=== PATIENT | female | born 1995 | race African-American/Black ===

== ENCOUNTER 2017-09-05 07:23 | Emergency (ER) | payer OTHER ==
[~2017-09-05] VITALS: Ht 175.3 cm; Wt 90.7 kg
[~2017-09-05 07:23] MED LIST: MACROBID 100 M100 M1 PO; TRINATE TABLET1 TAB PO
[2017-09-05 07:40] VITALS: BP 147/88
== END 2017-09-05 08:38 | disposition home or self-care (01) ==
LOC: ER 07:23
DX: R21 Rash and other nonspecific skin eruption (principal)

== ENCOUNTER 2018-05-13 20:10 | Emergency (ER) | payer OTHER ==
[~2018-05-13] VITALS: Ht 175.3 cm; Wt 77.1 kg
[2018-05-13 20:27] LABS: URINE BILIRUBIN NEGATIVE (Negative); URINE BLOOD 1+ (Negative); URINE CLARITY CLEAR; URINE COLOR YELLOW; URINE GLUCOSE-RANDOM* NEGATIVE (Negative); URINE KETONES NEGATIVE (Negative); URINE LEUKOCYTES-REFLEX NEGATIVE (Negative); URINE NITRITE-REFLEX NEGATIVE (Negative); URINE PROTEIN (DIPSTICK) NEGATIVE (Negative)
[2018-05-13 20:35] LABS: AMORPHOUS PHOSPHATES Few /LPF (None Seen); BACTERIA-REFLEX None Seen /HPF (None Seen); CASTS None Seen /LPF (None Seen); SQUAMOUS 0-3 Few /LPF (0-3); URINE RBC 3-10 Few /HPF (0-2); URINE WBC-REFLEX 0-5 Rare /HPF (0-5)
[2018-05-13] MEDS ORDERED: FLAGYL500 M1 PO (22:04)
[2018-05-13 22:50] VITALS: BP 136/82
== END 2018-05-13 22:51 | disposition home or self-care (01) ==
LOC: ER 20:10
PROVIDERS: Physician Assistant
DX: O20.0 Threatened abortion (principal); Z3A.01 Less than 8 weeks gestation of pregnancy

== ENCOUNTER 2018-08-06 19:39 | Emergency (ER) | payer OTHER ==
[~2018-08-06] VITALS: Ht 170.2 cm; Wt 85.3 kg
[~2018-08-06 19:39] MED LIST changes: +FLAGYL500 M1 PO
[2018-08-06] MEDS ORDERED: CVS NIGHTTIME118 ML PO (20:46)
[2018-08-06 21:03] VITALS: BP 140/80
== END 2018-08-06 21:03 | disposition home or self-care (01) ==
LOC: ER 19:39
DX: O99.512 Diseases of the respiratory system complicating pregnancy, second trimester (principal); J06.9 Acute upper respiratory infection, unspecified; I10 Essential (primary) hypertension; Z3A.16 16 weeks gestation of pregnancy

== ENCOUNTER 2020-08-04 18:01 | Emergency (ER) | payer OTHER ==
[~2020-08-04] VITALS: Ht 170.2 cm; Wt 90.7 kg
[~2020-08-04 18:01] MED LIST changes: +CVS NIGHTTIME118 ML PO
[2020-08-04 19:49] VITALS: BP 149/98
== END 2020-08-04 19:47 | disposition home or self-care (01) ==
LOC: ER 18:01
DX: T16.1XXA Foreign body in right ear, initial encounter (principal); X58.XXXA Exposure to other specified factors, initial encounter; Y93.89 Activity, other specified; Y92.89 Other specified places as the place of occurrence of the external cause; Y99.9 Unspecified external cause status